=== PATIENT | male | born 1950 | race Caucasian/White ===

== ENCOUNTER 2016-12-16 07:16 | Day surgery (SDC) | payer MEDICARE, MEDICAID ==
[2016-12-09 11:39] VITALS: BMI 20.9
[~2016-12-16 07:16] MED LIST: Ciprofloxacin 0.3% OPTH SOLN OS SCH; Flurbiprofen 0.03% Opht SOLN OS SCH; Lactated Ringer's 500 ML IV ONE; Phenylephrine 2.5% Opht Soln OS SCH; Tropicamide 1% Opht SOLUTION OS SCH; acetaZOLAMIDE 500 mg SR Cap PO ONE
[2016-12-16] MEDS ORDERED: Povidone Iodine Ophthalmic 5% Soln ONE (07:32)
[2016-12-16] MEDS ORDERED: Tetracaine 0.5% Ophth (OR ONLY) ONE (07:33)
[2016-12-16] MEDS ORDERED: Chondroitin/Hyaluronate Opth Syringe KIT (0.55 ml-0.5 ml) IO ONE (07:33)
[2016-12-16] MEDS ORDERED: Carbachol 0.01% IO ONE (07:33)
[2016-12-16] MEDS ORDERED: Tobramycin/Dexamethasone OPHT OINT ONE (07:33)
[2016-12-16] MEDS ORDERED: Hyaluronidase Human, Recombi 150 U/ML VIAL ONE (07:33)
[2016-12-16] MEDS ORDERED: Lactated Ringer's 500 ML IV ONE (08:16)
[2016-12-16] MEDS ORDERED: Midazolam 2 MG/2 ML VIAL ONE (09:44)
[2016-12-16] MEDS ORDERED: Hyaluronate Sodium 10 mg/ml Ophth Syringe ONE (10:07)
--- NOTE | 2016-12-16 10:37 | OP ---
PROCEDURE DATE: 12/16/2016 PREOPERATIVE DIAGNOSIS: CATARACT LEFT EYE. POSTOPERATIVE DIAGNOSIS: CATARACT LEFT EYE. OPERATIVE PROCEDURE: PHACOEMULSIFICATION LEFT EYE, INSERTION OF POSTERIOR CHAMBER IMPLANT. SURGEON: Dr. Valderrama. COSURGEON: Dr. Butler. ANESTHESIA TYPE: LOCAL INTRAVENOUS SEDATION. PROCEDURE: The patient was brought into the operating room, placed in supine position, prepped and dr aped in the usual fashion for ophthalmic surgery. Lid speculum inserted, lids and exposin g globe. A side port incision was made superiorly and inferiorly with a disposable sharp blade. Ant erior chamber was filled with Viscoat. A near clear corneal incision was made temporally with a 2.75 millimeter keratome. Capsulorrhexis was then performed with Utrata forceps. Hydrodissection joel d out with balanced salt solution. Nucleus was phacoemulsified. Remaining cortical fragments were r emoved with a split irrigation and aspiration system. The capsular sac was filled with Provisc. A p osterior chamber lens was then injected into the capsular sac and rotated into horizontal position. Provisc was aspirated out of the anterior chamber. The pupil was constricted with Miochol. The woun d was found to be watertight. Topical Betadine, Timoptic and TobraDex ointment and pressure patch we re applied. The patient tolerated the procedure well. Brock Valderrama MD cc: [id number] TT: 12/16/2016 10:37:19 emmett
[2016-12-16 10:50] VITALS: RESP 20
[2016-12-16 12:06] VITALS: BP 118/70; PULSE 65; TEMP 97.3; O2SAT 100
== END 2016-12-16 11:15 | disposition home or self-care (01) ==
LOC: C.SDS 07:16
PROVIDERS: ATTEND Ophthalmology
DX: H26.9 Unspecified cataract (principal)
CPT/HCPCS: 66984; J2250; J3010; J3470; J7120; V2632

== ENCOUNTER 2017-01-20 07:23 | Day surgery (SDC) | payer MEDICARE ==
[2016-12-09 11:38] VITALS: BMI 20.9
[~2017-01-20 07:23] MED LIST changes: +Ciprofloxacin 0.3% OPTH SOLN OD SCH; -Ciprofloxacin 0.3% OPTH SOLN OS SCH; +Flurbiprofen 0.03% Opht SOLN OD SCH; -Flurbiprofen 0.03% Opht SOLN OS SCH; +Phenylephrine 2.5% Opht Soln OD SCH; -Phenylephrine 2.5% Opht Soln OS SCH; +Tropicamide 1% Opht SOLUTION OD SCH; -Tropicamide 1% Opht SOLUTION OS SCH
[2017-01-20] MEDS ORDERED: Tobramycin/Dexamethasone OPHT OINT ONE (07:28)
[2017-01-20] MEDS ORDERED: Carbachol 0.01% IO ONE (07:28)
[2017-01-20] MEDS ORDERED: Povidone Iodine Ophthalmic 5% Soln ONE (07:28)
[2017-01-20] MEDS ORDERED: Tetracaine 0.5% Ophth (OR ONLY) ONE (07:28)
[2017-01-20] MEDS ORDERED: Hyaluronidase Human, Recombi 150 U/ML VIAL ONE (07:29)
[2017-01-20] MEDS ORDERED: Lidocaine 2% Inj (20ml) ONE (07:29)
[2017-01-20] MEDS ORDERED: Chondroitin/Hyaluronate Opth Syringe KIT (0.55 ml-0.5 ml) IO ONE (07:29)
[2017-01-20] MEDS ORDERED: Lactated Ringer's 1,000 ML IV ONE (07:45)
[2017-01-20] MEDS ORDERED: Midazolam 2 MG/2 ML VIAL ONE (09:08)
[2017-01-20] MEDS ORDERED: acetaZOLAMIDE 500 mg SR Cap PO ONE (10:09)
--- NOTE | 2017-01-20 10:16 | OP ---
PROCEDURE DATE: 01/20/2017 PREOPERATIVE DIAGNOSIS: CATARACT, RIGHT EYE. POSTOPERATIVE DIAGNOSIS: CATARACT, RIGHT EYE. OPERATIVE PROCEDURE: PHACOEMULSIFICATION, RIGHT EYE, INSERTION OF POSTERIOR CHAMBER IMPLANT. SURGEON: Dr. Brock Valderrama. COSURGEON: Dr. Butler. ANESTHESIA TYPE: LOCAL WITH INTRAVENOUS SEDATION. PROCEDURE: The patient was brought into the operating room, placed in supine position, prepped and dr aped in the usual fashion for ophthalmic surgery. Lid speculum inserted, lids and exposin g globe. A side port incision was made superiorly and inferiorly with a disposable sharp blade. Ant erior chamber was filled with Viscoat. A near clear corneal incision was made temporally with a 2.75 millimeter keratome. Capsulorrhexis was then performed with Utrata forceps. Hydrodissection joel d out with balanced salt solution. Nucleus was phacoemulsified. Remaining cortical fragments were r emoved with a split irrigation and aspiration system. The capsular sac was filled with Provisc. A p osterior chamber lens was then injected into the capsular sac and rotated into horizontal position. Provisc was aspirated out of the anterior chamber. The pupil was constricted with Miochol. The woun d was found to be watertight. Topical Betadine, Timoptic and TobraDex ointment and pressure patch we re applied. The patient tolerated the procedure well. Brock Valderrama MD cc: [id number] TT: 01/20/2017 10:16:09 ut
[2017-01-20 10:44] VITALS: BP 109/69; PULSE 67; RESP 18; TEMP 97.5; O2SAT 96
== END 2017-01-20 10:43 | disposition home or self-care (01) ==
LOC: C.SDS 07:23
PROVIDERS: ATTEND Ophthalmology
DX: H26.9 Unspecified cataract (principal)
CPT/HCPCS: 66984; J2250; J3010; J3470; J7120

== ENCOUNTER 2018-07-19 07:31 | Day surgery (SDC) | payer MEDICARE ==
[2016-12-09 11:38] VITALS: BMI 20.9
[2018-07-19] MEDS ORDERED: Lidocaine Hydrochloride 5 ML INJ ONE (08:50)
[2018-07-19] MEDS ORDERED: Propofol 10 mg/ml Inj (20 ML) ONE (08:51)
--- NOTE | 2018-07-19 08:54 | CP.SDSHP ---
Same Day Surgery H & P - History Proposed Procedure: colonoscopy Pre-Op Diagnosis: screening for colon cancer - Previous Medical/Surgical History Cardiac: Hypertension, Other (hypercholesterolemia, vitamin D deficiency) Previous Surgical History: Bilat cataracts - Allergies Allergies: Allergies No Known Allergies Allergy (Verified 07/19/18 08:28) - Physical Exam Vital Signs: Vital Signs 07/19/18 08:33 Temperature 97.3 F L Pulse Rate 73 Respiratory 19 Rate Blood Pressure 135/85 O2 Sat by Pulse 99 Oximetry Mental Status: Alert & Oriented x3 Neuro: WNL Heart: WNL Lungs: WNL GI: WNL - Impression Impression: screening for colon cancer Pt. Evaluated Today:Candidate for Anesthesia & Procedure: Yes - Date & Time Date: 07/19/18 Time: 08:54 Short Stay Discharge - Short Stay Discharge Admitting Diagnosis/Reason for Visit: ENCOUNTER FOR SCREENING FOR MALIGNANT NEOPLASM OF Disposition: HOME/ ROUTINE Referrals: Mariusz Sutherland MD [Primary Care Provider] -
[2018-07-19 11:14] VITALS: RESP 18; TEMP 98
[2018-07-19 11:15] VITALS: BP 112/75
[2018-07-19 11:21] VITALS: PULSE 70; O2SAT 100
== END 2018-07-19 10:30 | disposition home or self-care (01) ==
LOC: C.ENDO 07:31
PROVIDERS: ATTEND Internal Medicine Gastroenterology
DX: K64.1 Second degree hemorrhoids (principal); Z12.11 Encounter for screening for malignant neoplasm of colon; I10 Essential (primary) hypertension; E78.5 Hyperlipidemia, unspecified; E55.9 Vitamin D deficiency, unspecified; E78.00 Pure hypercholesterolemia, unspecified
CPT/HCPCS: 45378; J2704